=== PATIENT | female | born 1950 | race Caucasian/White ===

== ENCOUNTER 2025-05-09 10:35 | Day surgery (SDC) | payer MEDICARE, MEDICAID ==
[2025-05-01 13:33] VITALS: BMI 20.6
[2025-05-09] MEDS ORDERED: Rocuronium Bromide 10 MG/ML (10ML VIAL) ONE ×2 (12:02→12:24)
[2025-05-09] MEDS ORDERED: PROPOFOL 40 ML ONE (12:02)
[2025-05-09] MEDS ORDERED: Ondansetron PF 4 MG/2 ML Vial ONE ×2 (12:02→14:24)
[2025-05-09] MEDS ORDERED: Lidocaine 1% PF 5 ML VIAL ONE ×2 (12:02→12:24)
[2025-05-09] MEDS ORDERED: SUGAMMADEX SODIUM 200 MG/2 ML VIAL ONE (12:02)
[2025-05-09] MEDS ORDERED: Bupivacaine/Epinephrine 0.25% 30 ML VIAL ONE (12:07)
[2025-05-09] MEDS ORDERED: CEFAZOLIN 2 GM VIAL ONE (12:07)
[2025-05-09] MEDS ORDERED: Etomidate 40 MG (20 mL) VIAL ONE (12:29)
[2025-05-09] MEDS ORDERED: PHENYLEPHRINE-NS 100 MCG/ML 10 ML SYRINGE ONE (12:58)
[2025-05-09] MEDS ORDERED: HYDROcodone/Acetaminophen 5/325 mg Tablet ONE (15:32)
== END 2025-05-09 16:10 | disposition home or self-care (01) ==
LOC: CSHSDC 10:35
PROVIDERS: ATTEND Surgery
PROC: 0FT44ZZ Resection of Gallbladder, Percutaneous Endoscopic Approach (ICD-10-PCS; principal; 2025-05-09)
DX: K80.10 Calculus of gallbladder with chronic cholecystitis without obstruction (principal); I11.0 Hypertensive heart disease with heart failure; I50.22 Chronic systolic (congestive) heart failure; I48.91 Unspecified atrial fibrillation; I73.9 Peripheral vascular disease, unspecified; I25.118 Atherosclerotic heart disease of native coronary artery with other forms of angina pectoris; E78.2 Mixed hyperlipidemia; J44.9 Chronic obstructive pulmonary disease, unspecified; F17.200 Nicotine dependence, unspecified, uncomplicated; Z98.51 Tubal ligation status; Z95.1 Presence of aortocoronary bypass graft; Z90.49 Acquired absence of other specified parts of digestive tract; Z90.710 Acquired absence of both cervix and uterus; Z88.8 Allergy status to other drugs, medicaments and biological substances; Z88.5 Allergy status to narcotic agent; Z79.01 Long term (current) use of anticoagulants; Z79.51 Long term (current) use of inhaled steroids; Z79.899 Other long term (current) drug therapy
CPT/HCPCS: 47562; C1889; J1100; J2405; J2704; J3010; S2900; 88304

== ENCOUNTER 2025-05-13 13:28 | Inpatient (IN) | payer MEDICARE, MEDICAID ==
[2025-05-13 15:21] LABS: ALT (SGPT) 31 U/L (Less than 34); AST (SGOT) 31 U/L (11-34); Albumin 3.7 g/dL (3.1-4.5); Alkaline Phosphatase 150 U/L (40-110); Anion Gap 19 mmol/L (10-20); BUN (Urea Nitrogen) 12 mg/dL (9.8-20.1); Bilirubin, Total 2.0 mg/dL (0.3-1.2); Calc. Creatinine Clearance 0 mL/min (70-130); Calcium 9.3 mg/dL (7.8-10.44); Carbon Dioxide 25 mmol/L (23-31); Chloride 99 mmol/L (98-107); Globulin 3.8 g/dL (2.4-3.5); Glucose 135 mg/dL (83-110); Lipase 12 U/L (8-78); Potassium 4.0 mmol/L (3.5-5.1); Sodium 139 mmol/L (136-145)
[2025-05-13 15:27] LABS: Troponin I 0.014 ng/mL (< 0.028)
[2025-05-13 15:34] LABS: Hematocrit 45.0 % (34.9-44.5); Hemoglobin 15.3 g/dL (12.0-15.5); Mean Corpuscular Hemoglobin 30.0 pg (27.0-33.0); Mean Corpuscular Volume 88.2 fL (81.6-98.3); Platelet Count 214 10x3/uL (150-450); Red Blood Cell (RBC) Count 5.10 10x6/uL (3.90-5.03); White Blood Cell (WBC) Count 25.03 10x3/uL (3.5-10.5)
[2025-05-13 15:55] LABS: MDiff Complete? YES; Platelet Adequacy Comment Appears Adequate; RBC Morphology Within Normal Limits
[2025-05-13] MEDS ORDERED: Vancomycin 1.5 GRAM/300 ML BAG 1.5 GM in Premix 1 BAG IVPB SCH (16:30)
[2025-05-13 17:33] LABS: Glucose, Urine (Dipstick) Normal (Negative); Leukocyte Negative (Negative); Protein, Urine (Dipstick) 15 mg/dl (Neg-Trace); Specific Gravity, Urine 1.005 (1.005-1.030)
[2025-05-13 17:49] LABS: Bacteria/HPF Rare-Few HPF (None Seen); CAUTI Indications for Culture Fever or rigors; WBC/HPF 0-3 HPF (0-3)
[2025-05-13 17:51] LABS: Urine Culture Reflex No No
[2025-05-13] MEDS ORDERED: PROPOFOL 20 ML ONE (19:31)
[2025-05-13] MEDS ORDERED: Ondansetron PF 4 MG/2 ML Vial ONE (19:31)
[2025-05-13] MEDS ORDERED: Rocuronium Bromide 10 MG/ML (10ML VIAL) ONE (19:31)
[2025-05-13] MEDS ORDERED: PHENYLEPHRINE-NS 100 MCG/ML 10 ML SYRINGE ONE (20:53)
[2025-05-13] MEDS ORDERED: SUGAMMADEX SODIUM 200 MG/2 ML VIAL ONE (21:15)
[2025-05-13] MEDS ORDERED: Acetaminophen 325 MG (10.15 ML) UDCUP PO PRN (21:42)
[2025-05-13] MEDS ORDERED: Calcium Carbonate 500 MG ChewTAB PO PRN (21:46)
[2025-05-13 22:15] LABS: Magnesium 2.0 mg/dL (1.6-2.6)
[2025-05-13] MEDS: Pantoprazole 40 MG VIAL IVP SCH (22:53)
[2025-05-13] MEDS: Magnesium 2 GM/50 ML(in water) 2 GM in Premix 1 BAG IVPB SCH (23:14)
[2025-05-14] MEDS: dilTIAZem 25 MG/5 ML VIAL SLOW IVP SCH (01:48)
[2025-05-14] MEDS: Diltiazem HCl/D5W 125 MG in Premix 1 BAG IVPB SCH ×2 (02:56→22:17)
[2025-05-14 03:43] LABS: Hematocrit 41.5 % (34.9-44.5); Hemoglobin 14.1 g/dL (12.0-15.5); Mean Corpuscular Hemoglobin 29.7 pg (27.0-33.0); Mean Corpuscular Volume 87.6 fL (81.6-98.3); Platelet Count 195 10x3/uL (150-450); Red Blood Cell (RBC) Count 4.74 10x6/uL (3.90-5.03); White Blood Cell (WBC) Count 30.27 10x3/uL (3.5-10.5)
[2025-05-14 03:44] LABS: MDiff Complete? YES; Platelet Adequacy Comment Appears Adequate; RBC Morphology Within Normal Limits
[2025-05-14 03:48] LABS: ALT (SGPT) 26 U/L (Less than 34); AST (SGOT) 24 U/L (11-34); Albumin 2.9 g/dL (3.1-4.5); Alkaline Phosphatase 113 U/L (40-110); Anion Gap 15 mmol/L (10-20); BUN (Urea Nitrogen) 12 mg/dL (9.8-20.1); Bilirubin, Total 1.7 mg/dL (0.3-1.2); Calc. Creatinine Clearance 58 mL/min (70-130); Calcium 8.2 mg/dL (7.8-10.44); Carbon Dioxide 23 mmol/L (23-31); Chloride 103 mmol/L (98-107); Globulin 3.3 g/dL (2.4-3.5); Glucose 166 mg/dL (83-110); Magnesium 2.5 mg/dL (1.6-2.6); Potassium 3.3 mmol/L (3.5-5.1); Sodium 138 mmol/L (136-145)
[2025-05-14] MEDS: Potassium Chloride 20 MEQ in Premix 1 BAG IVPB SCH (05:29)
[2025-05-14] MEDS: Mometasone 200 MCG/Formoterol 5 MCG 60 PUFF INHALER INH SCH (07:15)
[2025-05-14] MEDS: VANCOMYCIN 1.25 GM/250 ML BAG 1.25 GM in Premix 1 BAG IVPB SCH (07:19)
[2025-05-14] MEDS: Pantoprazole 40 MG VIAL IVP SCH (08:16)
[2025-05-14 15:29] LABS: Anion Gap 17 mmol/L (10-20); BUN (Urea Nitrogen) 15 mg/dL (9.8-20.1); Calc. Creatinine Clearance 50 mL/min (70-130); Calcium 8.5 mg/dL (7.8-10.44); Carbon Dioxide 22 mmol/L (23-31); Chloride 103 mmol/L (98-107); Glucose 154 mg/dL (83-110); Potassium 3.9 mmol/L (3.5-5.1); Sodium 138 mmol/L (136-145)
[2025-05-14] MEDS: Enoxaparin 40 MG (0.4 mL) SYRINGE SC SCH (22:03)
[2025-05-14] MEDS: DULoxetine 30 MG CAP PO SCH (22:19)
[2025-05-15] MEDS: Ketorolac Tromethamine 30 MG (1 mL) VIAL IVP SCH (00:22)
[2025-05-15 03:34] LABS: #Basophils Less than 0.03 10x3/uL (0.0-0.2); #Eosinophils 0.03 10x3/uL (0.0-0.5); #Monocytes 1.61 10x3/uL (0.0-1.1); #Neutrophils 16.75 10x3/uL (1.5-8.4); %Basophils 0.1 % (0.0-2.0); %Eosinophils 0.2 % (0.0-6.0); %Lymphocytes 5.6 % (18.0-47.0); %Monocytes 8.2 % (0.0-10.0); %Neutrophils 85.3 % (40.0-75.0); Hematocrit 34.5 % (34.9-44.5); Hemoglobin 11.7 g/dL (12.0-15.5); Mean Corpuscular Hemoglobin 30.2 pg (27.0-33.0); Mean Corpuscular Volume 88.9 fL (81.6-98.3); Platelet Count 160 10x3/uL (150-450); Red Blood Cell (RBC) Count 3.88 10x6/uL (3.90-5.03); White Blood Cell (WBC) Count 19.61 10x3/uL (3.5-10.5)
[2025-05-15 03:49] LABS: ALT (SGPT) 9 U/L (Less than 34); AST (SGOT) 18 U/L (11-34); Albumin 2.3 g/dL (3.1-4.5); Alkaline Phosphatase 89 U/L (40-110); Anion Gap 11 mmol/L (10-20); BUN (Urea Nitrogen) 14 mg/dL (9.8-20.1); Bilirubin, Total 0.9 mg/dL (0.3-1.2); Calc. Creatinine Clearance 58 mL/min (70-130); Calcium 8.1 mg/dL (7.8-10.44); Carbon Dioxide 26 mmol/L (23-31); Chloride 104 mmol/L (98-107); Globulin 3.4 g/dL (2.4-3.5); Glucose 110 mg/dL (83-110); Magnesium 2.3 mg/dL (1.6-2.6); Potassium 3.4 mmol/L (3.5-5.1); Sodium 138 mmol/L (136-145)
[2025-05-15 05:04] VITALS: BMI 23.7
[2025-05-15] MEDS: Potassium Chloride 20 MEQ in Premix 1 BAG IVPB SCH (08:43)
[2025-05-15] MEDS: Ondansetron PF 4 MG/2 ML Vial IVP PRN (14:08)
[2025-05-15 14:50] LABS: Potassium 4.4 mmol/L (3.5-5.1)
[2025-05-16] MEDS ORDERED: Phenol 177 ML BOT PO PRN (00:50)
[2025-05-16] MEDS: Ketorolac Tromethamine 30 MG (1 mL) VIAL IVP SCH (01:05)
[2025-05-16 03:42] LABS: #Basophils 0.03 10x3/uL (0.0-0.2); #Eosinophils 0.06 10x3/uL (0.0-0.5); #Monocytes 1.59 10x3/uL (0.0-1.1); #Neutrophils 14.51 10x3/uL (1.5-8.4); %Basophils 0.2 % (0.0-2.0); %Eosinophils 0.3 % (0.0-6.0); %Lymphocytes 6.2 % (18.0-47.0); %Monocytes 9.1 % (0.0-10.0); %Neutrophils 83.6 % (40.0-75.0); Hematocrit 38.6 % (34.9-44.5); Hemoglobin 13.1 g/dL (12.0-15.5); Mean Corpuscular Hemoglobin 30.3 pg (27.0-33.0); Mean Corpuscular Volume 89.4 fL (81.6-98.3); Platelet Count 199 10x3/uL (150-450); Red Blood Cell (RBC) Count 4.32 10x6/uL (3.90-5.03); White Blood Cell (WBC) Count 17.38 10x3/uL (3.5-10.5)
[2025-05-16 03:56] LABS: ALT (SGPT) Less than 4 U/L (Less than 34); AST (SGOT) 19 U/L (11-34); Albumin 2.4 g/dL (3.1-4.5); Alkaline Phosphatase 88 U/L (40-110); Anion Gap 15 mmol/L (10-20); BUN (Urea Nitrogen) 23 mg/dL (9.8-20.1); Bilirubin, Total 0.9 mg/dL (0.3-1.2); Calc. Creatinine Clearance 52 mL/min (70-130); Calcium 8.5 mg/dL (7.8-10.44); Carbon Dioxide 25 mmol/L (23-31); Chloride 105 mmol/L (98-107); Globulin 3.8 g/dL (2.4-3.5); Glucose 92 mg/dL (83-110); Magnesium 2.5 mg/dL (1.6-2.6); Potassium 4.3 mmol/L (3.5-5.1); Sodium 141 mmol/L (136-145)
[2025-05-17 06:32] LABS: #Basophils Less than 0.03 10x3/uL (0.0-0.2); #Eosinophils 0.19 10x3/uL (0.0-0.5); #Monocytes 1.42 10x3/uL (0.0-1.1); #Neutrophils 9.68 10x3/uL (1.5-8.4); %Basophils 0.2 % (0.0-2.0); %Eosinophils 1.5 % (0.0-6.0); %Lymphocytes 9.0 % (18.0-47.0); %Monocytes 11.4 % (0.0-10.0); %Neutrophils 77.3 % (40.0-75.0); Hematocrit 34.6 % (34.9-44.5); Hemoglobin 11.6 g/dL (12.0-15.5); Mean Corpuscular Hemoglobin 29.4 pg (27.0-33.0); Mean Corpuscular Volume 87.6 fL (81.6-98.3); Platelet Count 193 10x3/uL (150-450); Red Blood Cell (RBC) Count 3.95 10x6/uL (3.90-5.03); White Blood Cell (WBC) Count 12.51 10x3/uL (3.5-10.5)
[2025-05-17 06:50] LABS: Anion Gap 18 mmol/L (10-20); BUN (Urea Nitrogen) 28 mg/dL (9.8-20.1); Calc. Creatinine Clearance 63 mL/min (70-130); Calcium 8.0 mg/dL (7.8-10.44); Carbon Dioxide 22 mmol/L (23-31); Chloride 105 mmol/L (98-107); Glucose 75 mg/dL (83-110); Potassium 3.8 mmol/L (3.5-5.1); Sodium 141 mmol/L (136-145)
[2025-05-17 08:45] LABS: Magnesium 2.4 mg/dL (1.6-2.6)
[2025-05-17] MEDS: Digoxin 0.5 MG/2 ML AMP SLOW IVP SCH (15:00)
[2025-05-17 16:57] VITALS: BMI 23.4
[2025-05-17] MEDS: Benzonatate 100 MG CAP PO PRN (20:38)
[2025-05-18 05:52] LABS: #Basophils 0.03 10x3/uL (0.0-0.2); #Eosinophils 0.22 10x3/uL (0.0-0.5); #Monocytes 1.33 10x3/uL (0.0-1.1); #Neutrophils 9.16 10x3/uL (1.5-8.4); %Basophils 0.2 % (0.0-2.0); %Eosinophils 1.8 % (0.0-6.0); %Lymphocytes 10.7 % (18.0-47.0); %Monocytes 11.0 % (0.0-10.0); %Neutrophils 75.6 % (40.0-75.0); Hematocrit 34.4 % (34.9-44.5); Hemoglobin 11.6 g/dL (12.0-15.5); Mean Corpuscular Hemoglobin 29.8 pg (27.0-33.0); Mean Corpuscular Volume 88.4 fL (81.6-98.3); Platelet Count 217 10x3/uL (150-450); Red Blood Cell (RBC) Count 3.89 10x6/uL (3.90-5.03); White Blood Cell (WBC) Count 12.12 10x3/uL (3.5-10.5)
[2025-05-18 06:15] LABS: Anion Gap 17 mmol/L (10-20); BUN (Urea Nitrogen) 22 mg/dL (9.8-20.1); Calc. Creatinine Clearance 65 mL/min (70-130); Calcium 8.2 mg/dL (7.8-10.44); Carbon Dioxide 23 mmol/L (23-31); Chloride 105 mmol/L (98-107); Glucose 76 mg/dL (83-110); Potassium 3.8 mmol/L (3.5-5.1); Sodium 141 mmol/L (136-145)
[2025-05-18 14:28] LABS: Digoxin 0.71 ng/mL (0.8-2.0)
[2025-05-18] MEDS: Apixaban 5 MG TAB PO SCH (20:48)
[2025-05-19 03:26] LABS: #Basophils 0.03 10x3/uL (0.0-0.2); #Eosinophils 0.28 10x3/uL (0.0-0.5); #Monocytes 1.03 10x3/uL (0.0-1.1); #Neutrophils 9.80 10x3/uL (1.5-8.4); %Basophils 0.2 % (0.0-2.0); %Eosinophils 2.2 % (0.0-6.0); %Lymphocytes 11.7 % (18.0-47.0); %Monocytes 8.1 % (0.0-10.0); %Neutrophils 76.7 % (40.0-75.0); Hematocrit 32.1 % (34.9-44.5); Hemoglobin 10.6 g/dL (12.0-15.5); Mean Corpuscular Hemoglobin 29.0 pg (27.0-33.0); Mean Corpuscular Volume 87.9 fL (81.6-98.3); Platelet Count 204 10x3/uL (150-450); Red Blood Cell (RBC) Count 3.65 10x6/uL (3.90-5.03); White Blood Cell (WBC) Count 12.77 10x3/uL (3.5-10.5)
[2025-05-19 03:44] LABS: Anion Gap 13 mmol/L (10-20); BUN (Urea Nitrogen) 14 mg/dL (9.8-20.1); Calc. Creatinine Clearance 75 mL/min (70-130); Calcium 7.8 mg/dL (7.8-10.44); Carbon Dioxide 25 mmol/L (23-31); Chloride 105 mmol/L (98-107); Glucose 86 mg/dL (83-110); Potassium 3.0 mmol/L (3.5-5.1); Sodium 140 mmol/L (136-145)
[2025-05-19 10:27] LABS: Glucose, Urine (Dipstick) Normal (Negative); Leukocyte 25 (Negative); Protein, Urine (Dipstick) 30 mg/dl (Neg-Trace); Specific Gravity, Urine 1.020 (1.005-1.030)
[2025-05-19 10:39] LABS: CAUTI Indications for Culture Immunosuppressed; RBC/HPF 0-3 HPF (0-3); WBC/HPF 0-3 HPF (0-3)
[2025-05-19 10:40] LABS: Bacteria/HPF Rare-Few HPF (None Seen)
[2025-05-19 10:42] LABS: Urine Culture Reflex Yes Yes
[2025-05-19 12:31] LABS: Potassium 3.5 mmol/L (3.5-5.1)
[2025-05-20 04:05] LABS: #Basophils 0.04 10x3/uL (0.0-0.2); #Eosinophils 0.38 10x3/uL (0.0-0.5); #Monocytes 0.78 10x3/uL (0.0-1.1); #Neutrophils 7.60 10x3/uL (1.5-8.4); %Basophils 0.4 % (0.0-2.0); %Eosinophils 3.5 % (0.0-6.0); %Lymphocytes 16.5 % (18.0-47.0); %Monocytes 7.2 % (0.0-10.0); %Neutrophils 70.5 % (40.0-75.0); Hematocrit 30.8 % (34.9-44.5); Hemoglobin 10.2 g/dL (12.0-15.5); Mean Corpuscular Hemoglobin 29.7 pg (27.0-33.0); Mean Corpuscular Volume 89.8 fL (81.6-98.3); Platelet Count 215 10x3/uL (150-450); Red Blood Cell (RBC) Count 3.43 10x6/uL (3.90-5.03); White Blood Cell (WBC) Count 10.79 10x3/uL (3.5-10.5)
[2025-05-20 04:27] LABS: ALT (SGPT) 15 U/L (Less than 34); AST (SGOT) 24 U/L (11-34); Albumin 2.2 g/dL (3.1-4.5); Alkaline Phosphatase 61 U/L (40-110); Anion Gap 10 mmol/L (10-20); BUN (Urea Nitrogen) 11 mg/dL (9.8-20.1); Bilirubin, Total 0.5 mg/dL (0.3-1.2); Calc. Creatinine Clearance 72 mL/min (70-130); Calcium 7.9 mg/dL (7.8-10.44); Carbon Dioxide 26 mmol/L (23-31); Chloride 106 mmol/L (98-107); Globulin 3.0 g/dL (2.4-3.5); Glucose 106 mg/dL (83-110); Potassium 3.2 mmol/L (3.5-5.1); Sodium 139 mmol/L (136-145)
[2025-05-20 12:37] VITALS: BP 129/67; TEMP 98.1
== END 2025-05-20 18:20 | disposition home or self-care (01) | DRG 907 ==
LOC: CSHERS 13:28 → CSHSDC/OP 20:05 → CSHICU 21:55 → CSHSDC/OP 22:22 → CSHICU 22:26 → CSHTELE 05-20 13:32
PROVIDERS: ADMIT Surgery; ATTEND Hospitalist
PROC: 0DQU0ZZ Repair Omentum, Open Approach (ICD-10-PCS; principal; 2025-05-13)
PROC: 0DQ90ZZ Repair Duodenum, Open Approach (ICD-10-PCS; 2025-05-13)
PROC: 3E03329 Introduction of Other Anti-infective into Peripheral Vein, Percutaneous Approach (ICD-10-PCS; 2025-05-13)
PROC: 0DJ04ZZ Inspection of Upper Intestinal Tract, Percutaneous Endoscopic Approach (ICD-10-PCS; 2025-05-13)
PROC: 4B02XTZ Measurement of Cardiac Defibrillator, External Approach (ICD-10-PCS; 2025-05-13)
PROC: 0D9670Z Drainage of Stomach with Drainage Device, Via Natural or Artificial Opening (ICD-10-PCS; 2025-05-13)
PROC: 0T9B70Z Drainage of Bladder with Drainage Device, Via Natural or Artificial Opening (ICD-10-PCS; 2025-05-13)
PROC: 3E033XZ Introduction of Vasopressor into Peripheral Vein, Percutaneous Approach (ICD-10-PCS; 2025-05-13)
PROC: 05HY33Z Insertion of Infusion Device into Upper Vein, Percutaneous Approach (ICD-10-PCS; 2025-05-14)
DX: K91.72 Accidental puncture and laceration of a digestive system organ or structure during other procedure (principal); J96.01 Acute respiratory failure with hypoxia; K65.0 Generalized (acute) peritonitis; K91.89 Other postprocedural complications and disorders of digestive system; I50.42 Chronic combined systolic (congestive) and diastolic (congestive) heart failure; J98.11 Atelectasis; K56.7 Ileus, unspecified; R18.8 Other ascites; E78.5 Hyperlipidemia, unspecified; J44.9 Chronic obstructive pulmonary disease, unspecified; I25.10 Atherosclerotic heart disease of native coronary artery without angina pectoris; I11.0 Hypertensive heart disease with heart failure; K21.9 Gastro-esophageal reflux disease without esophagitis; R19.8 Other specified symptoms and signs involving the digestive system and abdomen; F41.9 Anxiety disorder, unspecified; F17.210 Nicotine dependence, cigarettes, uncomplicated; I25.2 Old myocardial infarction; Z98.51 Tubal ligation status; Z90.49 Acquired absence of other specified parts of digestive tract; Z98.890 Other specified postprocedural states; Z95.1 Presence of aortocoronary bypass graft; Z88.8 Allergy status to other drugs, medicaments and biological substances; Z79.01 Long term (current) use of anticoagulants; Z79.899 Other long term (current) drug therapy; Z79.51 Long term (current) use of inhaled steroids; Z98.1 Arthrodesis status; Z79.02 Long term (current) use of antithrombotics/antiplatelets; K66.0 Peritoneal adhesions (postprocedural) (postinfection); Z53.31 Laparoscopic surgical procedure converted to open procedure; I08.1 Rheumatic disorders of both mitral and tricuspid valves; Z95.810 Presence of automatic (implantable) cardiac defibrillator; E87.6 Hypokalemia; I48.91 Unspecified atrial fibrillation
CPT/HCPCS: 36415; 36416; 71045; 71046; 74150; 74177; 74240; 80048; 80053; 80162; 81001; 83605; 83690; 83735; 83880; 84100; 84484; 85025; 87040; 87086; 93005; 94640; 94760; 94762; 96374; 96375; J1100; J1160; J1650; J1885; J2250; J2270; J2272; J2405; J2470; J2543; J2704; J3010; J3373; J3475; J3480; J7120; J7620

== ENCOUNTER 2025-08-09 20:19 | Emergency (ER) | payer MEDICARE, MEDICAID | END 2025-08-09 22:04 | disposition home or self-care (01) | LOC: CSHERS 20:19 | DX: S51.812A Laceration without foreign body of left forearm, initial encounter (principal); I48.91 Unspecified atrial fibrillation; I10 Essential (primary) hypertension; J44.9 Chronic obstructive pulmonary disease, unspecified; F17.210 Nicotine dependence, cigarettes, uncomplicated; Z95.5 Presence of coronary angioplasty implant and graft; W22.8XXA Striking against or struck by other objects, initial encounter | CPT/HCPCS: 99282 ==

== ENCOUNTER 2025-08-11 01:08 | Emergency (ER) | payer MEDICARE, MEDICAID ==
[2025-08-11] MEDS ORDERED: Silver Nitrate Application 1 EACH ONE (01:21)
[2025-08-11 02:03] LABS: #Basophils 0.08 10x3/uL (0.0-0.2); #Eosinophils 0.17 10x3/uL (0.0-0.5); #Monocytes 0.88 10x3/uL (0.0-1.1); #Neutrophils 4.86 10x3/uL (1.5-8.4); %Basophils 0.9 % (0.0-2.0); %Eosinophils 1.9 % (0.0-6.0); %Lymphocytes 32.3 % (18.0-47.0); %Monocytes 9.9 % (0.0-10.0); %Neutrophils 54.7 % (40.0-75.0); Hematocrit 38.7 % (34.9-44.5); Hemoglobin 13.1 g/dL (12.0-15.5); Mean Corpuscular Hemoglobin 30.3 pg (27.0-33.0); Mean Corpuscular Volume 89.6 fL (81.6-98.3); Platelet Count 210 10x3/uL (150-450); Red Blood Cell (RBC) Count 4.32 10x6/uL (3.90-5.03); White Blood Cell (WBC) Count 8.89 10x3/uL (3.5-10.5)
== END 2025-08-11 02:21 | disposition home or self-care (01) ==
LOC: CSHERS 01:08
DX: S51.812A Laceration without foreign body of left forearm, initial encounter (principal); J44.9 Chronic obstructive pulmonary disease, unspecified; I48.91 Unspecified atrial fibrillation; Z95.5 Presence of coronary angioplasty implant and graft; F17.210 Nicotine dependence, cigarettes, uncomplicated; Z79.01 Long term (current) use of anticoagulants; Z79.02 Long term (current) use of antithrombotics/antiplatelets; X58.XXXA Exposure to other specified factors, initial encounter
CPT/HCPCS: 36415; 85025; 86850; 86900; 86901; 99283